=== PATIENT | male | born 1995 | race Caucasian/White ===

== ENCOUNTER 2021-10-15 11:17 | Emergency (ER) | payer MEDICAID ==
[~2021-10-15] VITALS: Ht 172.7 cm; Wt 79.5 kg
[2021-10-15] MEDS ORDERED: METHOCARBAMOL 500 MG TABLET PO ONE (11:45)
[2021-10-15] MEDS ORDERED: KETOROLAC TROMETHAMINE 10 MG TABLET PO ONE (11:45)
[2021-10-15] MEDS ORDERED: LIDO1ADH83 TP (12:15)
[2021-10-15] MEDS ORDERED: NAPR-1025 PO (12:15)
[2021-10-15] MEDS ORDERED: METH-659 PO (12:15)
[2021-10-15 12:30] VITALS: BP 120/68
== END 2021-10-15 12:47 | disposition home or self-care (01) ==
LOC: EMS 11:25
DX: M54.41 Lumbago with sciatica, right side (principal); F12.90 Cannabis use, unspecified, uncomplicated
CPT/HCPCS: 99283